=== PATIENT | male | born 1965 | race African-American/Black ===

== ENCOUNTER 2022-07-16 19:08 | Inpatient (IN) | payer MEDICAID ==
[~2022-07-16] VITALS: Ht 167.6 cm; Wt 82.1 kg
[2022-07-16 20:15] LABS: BASOPHILS % 0.6 % (0.0-2.0); HEMATOCRIT. 40.6 % (42.0-52.0); HEMOGLOBIN. 13.8 g/dL (14.0-18.0); LYMPHOCYTES % 17.2 % (20.0-50.0); MEAN CORPUSCULAR HEMOGLOBIN 29.1 pg (28.0-32.0); MEAN CORPUSCULAR VOLUME 85.6 fL (80.0-94.0); NEUTROPHILS % 74.2 % (40.0-76.0); PLATELET 254 x1000/uL (130-400); RED BLOOD CELL COUNT 4.74 mill/uL (4.7-6.1); RED CELL DISTRIBUTION WIDTH 13.9 % (11.6-14.6)
[2022-07-16 20:44] LABS: CHLORIDE 107 mEq/L (98-107)
[2022-07-16] MEDS ORDERED: POTASSIUM CHLORIDE 20MEQ TABLET SR PO ONE (23:15)
[2022-07-16 23:38] LABS: CLARITY URINE CLEAR (CLEAR); COLOR URINE YELLOW (YELLOW); KETONES URINE NEGATIVE (NEGATIVE); LEUKOCYTE ESTERASE URINE NEGATIVE (NEGATIVE); NITRITE URINE NEGATIVE (NEGATIVE); OCCULT BLOOD URINE NEGATIVE (NEGATIVE); PH URINE 5.5 (4.5-8.0); PROTEIN URINE NEGATIVE (NEGATIVE); SPECIFIC GRAVITY URINE 1.015 (1.005-1.030); UROBILINOGEN URINE 0.2 E.U./dL (0.2-1.0)
[2022-07-17] MEDS ORDERED: CLONIDINE 0.1MG TABLET PO PRN (08:45)
[2022-07-17] MEDS ORDERED: ACETAMINOPHEN 325MG TABLET PO PRN (08:45)
[2022-07-17] MEDS ORDERED: DOCUSATE SODIUM 100MG CAPSULE PO PRN (08:45)
[2022-07-17] MEDS ORDERED: ZOLPIDEM TARTRATE 5MG TABLET PO PRN (08:45)
[2022-07-17] MEDS ORDERED: LORAZEPAM 0.5MG TABLET PO PRN (08:45)
[2022-07-17] MEDS ORDERED: ENOXAPARIN 40MG/0.4ML SYR SUBCUT SCH (09:00)
[2022-07-17 09:21] VITALS: BP 132/83
[2022-07-17] MEDS ORDERED: IRBE300T17 MT (10:57)
[2022-07-17] MEDS ORDERED: AMLO-375 MT (10:57)
[2022-07-17 11:00] VITALS: BP 132/83
[2022-07-17 12:00] VITALS: BP 133/80
[2022-07-17 16:00] VITALS: BP 159/89
[2022-07-17 16:59] VITALS: BP 105/57
== END 2022-07-17 17:36 | disposition home or self-care (01) | DRG 425 ==
LOC: ER 19:08 → 8WST 07-17 04:56 → CANRESERV 07-17 07:46 → ENRESERV 07-17 07:46
PROVIDERS: ADMIT Internal Medicine; ATTEND Internal Medicine
DX: E87.6 Hypokalemia (principal); E78.00 Pure hypercholesterolemia, unspecified; F41.9 Anxiety disorder, unspecified; E78.5 Hyperlipidemia, unspecified; R00.0 Tachycardia, unspecified; I10 Essential (primary) hypertension; F40.240 Claustrophobia
CPT/HCPCS: 36415; 71045; 80053; 81003; 83735; 83880; 84484; 85025; 93005; 99285; J1650